=== PATIENT | female | born 1940 | race Caucasian/White ===

== ENCOUNTER 2019-01-02 18:50 | Emergency (ER) | payer OTHER, MEDICARE ==
[2019-01-02] MEDS ORDERED: NICARDipine HCL 30 MG CAPSULE PO (21:00)
[2019-01-02] MEDS: NICARDipine HCL 30 MG CAPSULE PO (21:02)
== END 2019-01-02 21:07 | disposition home or self-care (01) ==
LOC: FTE 18:50
DX: M25.551 Pain in right hip (principal); I10 Essential (primary) hypertension; E11.9 Type 2 diabetes mellitus without complications; Z79.82 Long term (current) use of aspirin; Z79.84 Long term (current) use of oral hypoglycemic drugs
CPT/HCPCS: 73502; 73510; 99283-25